=== PATIENT | male | born 1995 | race American Indian/Alaskan Native ===

== ENCOUNTER 2021-04-14 16:51 | Emergency (ER) | payer BC ==
[2021-04-14 21:57] LABS: Alanine Aminotransferase 12 units/L (7-56); Albumin 3.8 g/dL (3.9-5); BUN/Creatinine Ratio 9; Blood Urea Nitrogen 8 mg/dL (9-20); Calcium 8.8 mg/dL (8.4-10.2); Hemolysis Index 4
[2021-04-14 22:01] LABS: Hematocrit 40.1 % (35.5-45.6); Hemoglobin 13.6 gm/dl (11.8-15.2); Mean Corpuscular HGB Conc 34 % (32-34); Mean Corpuscular Volume 100 fl (84-94); Platelet Count 303 K/mm3 (140-440); Red Blood Count 4.03 M/mm3 (3.65-5.03); Red Cell Distribution Width 14.2 % (13.2-15.2)
[2021-04-14 22:51] LABS: RBC Morphology Normal; Total Cells Counted 100
== END 2021-04-14 21:53 ==
LOC: ED 16:51
DX: L08.9 Local infection of the skin and subcutaneous tissue, unspecified (principal); Z53.21 Procedure and treatment not carried out due to patient leaving prior to being seen by health care provider
CPT/HCPCS: 36415; 80053; 85007; 85025

== ENCOUNTER 2021-04-15 07:33 | Emergency (ER) | payer SELFPAY ==
[2021-04-15 13:00] VITALS: BP 123/75
--- NOTE | 2021-04-15 13:00 | Event Note ---
ED Screening Note Date of service: 04/15/21 Time: 12:59 ED Screening Note: Patient complains of white/pale stools with abdominal pain x2 to 3 weeks Also complains of decreased urination Patient is a poor historian This initial assessment/diagnostic orders/clinical plan/treatment(s) is/are subj ect to change based on patients health status, clinical progression and re- assessment by fellow clinical providers in the ED. Further treatment and workup at subsequent clinical providers discretion. Patient/guardian urged not to elope from the ED as their condition may be serious if not clinically assessed and managed. Initial orders include: Labs CT
[2021-04-15 13:43] LABS: Basophils # (Auto) 0.1 K/mm3 (0.0-0.1); Basophils % (Auto) 1.2 % (0.0-1.8); Eosinophils # (Auto) 0.5 K/mm3 (0.0-0.4); Eosinophils % (Auto) 10.1 % (0.0-4.3); Hematocrit 40.8 % (35.5-45.6); Hemoglobin 13.7 gm/dl (11.8-15.2); Lymphocytes # (Auto) 1.6 K/mm3 (1.2-5.4); Lymphocytes % (Auto) 34.8 % (13.4-35.0); Mean Corpuscular HGB Conc 34 % (32-34); Mean Corpuscular Volume 99 fl (84-94); Monocytes # (Auto) 0.3 K/mm3 (0.0-0.8); Monocytes % (Auto) 7.5 % (0.0-7.3); Platelet Count 323 K/mm3 (140-440); Red Blood Count 4.14 M/mm3 (3.65-5.03); Red Cell Distribution Width 14.2 % (13.2-15.2)
[2021-04-15 14:02] LABS: Alanine Aminotransferase 11 units/L (7-56); Albumin 3.7 g/dL (3.9-5); Blood Urea Nitrogen 8 mg/dL (9-20); Calcium 9.3 mg/dL (8.4-10.2); Hemolysis Index 4
[2021-04-15 14:04] LABS: BUN/Creatinine Ratio 11
== END 2021-04-15 22:22 ==
LOC: ED 07:33
DX: Z00.00 Encounter for general adult medical examination without abnormal findings (principal); Z53.21 Procedure and treatment not carried out due to patient leaving prior to being seen by health care provider
CPT/HCPCS: 36415; 80053; 83690; 85025

== ENCOUNTER 2021-04-16 03:26 | Inpatient (IN) | payer SELFPAY ==
[2021-04-16 05:25] LABS: Basophils % (Auto) 0.7 % (0.0-1.8); Eosinophils # (Auto) 0.3 K/mm3 (0.0-0.4); Eosinophils % (Auto) 8.5 % (0.0-4.3); Hematocrit 43.6 % (35.5-45.6); Hemoglobin 14.6 gm/dl (11.8-15.2); Lymphocytes # (Auto) 1.1 K/mm3 (1.2-5.4); Lymphocytes % (Auto) 26.3 % (13.4-35.0); Mean Corpuscular HGB Conc 34 % (32-34); Mean Corpuscular Volume 100 fl (84-94); Monocytes # (Auto) 0.4 K/mm3 (0.0-0.8); Platelet Count 308 K/mm3 (140-440); Red Blood Count 4.35 M/mm3 (3.65-5.03); Red Cell Distribution Width 14.5 % (13.2-15.2)
[2021-04-16 06:34] LABS: Alanine Aminotransferase 12 units/L (7-56); Albumin 3.8 g/dL (3.9-5); BUN/Creatinine Ratio 14; Blood Urea Nitrogen 11 mg/dL (9-20); Calcium 9.6 mg/dL (8.4-10.2); Hemolysis Index 19
[2021-04-16] MEDS ORDERED: SODIUM CHLORIDE 0.9% 500 ML 500 ML IV ONE (12:39)
--- NOTE | 2021-04-16 12:39 | Emergency Department Report ---
ED Abdominal Pain HPI - General Chief Complaint: Abdominal Pain Stated Complaint: HAD SURGERY AT [facility] CURRENTLY HAVING PROBLEMS Time Seen by Provider: 04/16/21 12:05 Source: patient Mode of arrival: Ambulatory - History of Present Illness Initial Comments: 26 year old male presents to ER today with complaints of suprapubic abdominal pain which he has been having since the beginning of February2021. Patient states he was as well as at [facility] in the beginning of January, he states that he had a suprapubic catheter placed because he had "a bad infection throughout his body". He cannot give a clear explanation as to why he had a suprapubic catheter. He states that the suprapubic catheter was removed at the beginning of February but since it had been removed he has been having pain in that area. He also states that he has been having difficulty with his bowel movements. He states that the last time he had a bowel movement was about a week ago, and he also states that he has been constantly dripping urine, it has an odor and he is having hematuria and dysuria and he also reports a decreased appetite and he states he hasn't eaten for 3 days. Patient states that the pain is worse when he walks. He reports no nausea or vomiting, fever or chills. Patient states that he is type I DM on insulin but has been out of his meds x 2 weeks. He states he has a PCP, Dr Al but he is homeless and hasn't followed with him in a while. MD Complaint: abdominal pain -: month(s) (SINCE february ) Location: suprapubic Severity scale (0 -10): 0 - Related Data Allergies Allergy/AdvReac Type Severity Reaction Status Date / Time No Known Allergies Allergy Verified 04/16/21 04:30 ED Review of Systems ROS: Stated complaint: HAD SURGERY AT [facility] CURRENTLY HAVING PROBLEMS Other details as noted in HPI Comment: All other systems reviewed and negative Constitutional: denies: chills, fever Eyes: denies: eye pain, eye discharge, vision change ENT: denies: ear pain, throat pain Respiratory: denies: cough, shortness of breath, SOB with exertion, SOB at rest, wheezing Cardiovascular: denies: chest pain, palpitations, dyspnea on exertion, edema, s yncope, paroxysmal nocturnal dyspnea Gastrointestinal: abdominal pain, constipation. denies: nausea, vomiting, diarrhea, hematemesis Genitourinary: denies: urgency, dysuria, frequency, hematuria, discharge, testicular pain, testicular mass Musculoskeletal: denies: back pain, joint swelling, arthralgia Skin: denies: rash, lesions, change in color, change in hair/nails, pruritus Neurological: denies: headache, weakness, numbness, paresthesias, confusion, abnormal gait, vertigo Psychiatric: denies: anxiety, depression, auditory hallucinations, visual hallucinations, homicidal thoughts, suicidal thoughts Hematological/Lymphatic: denies: easy bleeding, easy bruising ED Past Medical Hx - Past Medical History Previous Medical History?: Yes Hx Diabetes: Yes Hx Sickle Cell Disease: Yes - Surgical History Past Surgical History?: Yes Additional Surgical History: abdominal surgery, rectal surgery - Social History Smoking Status: Never Smoker Substance Use Type: None ED Physical Exam - General General appearance: alert, in no apparent distress - Head Head exam: Present: atraumatic, normocephalic, normal inspection - ENT ENT exam: Present: normal exam, mucous membranes moist - Neck Neck exam: Present: normal inspection, full ROM. Absent: meningismus - Respiratory Respiratory exam: Present: normal lung sounds bilaterally. Absent: respiratory distress, wheezes, rales, rhonchi - Cardiovascular Cardiovascular Exam: Present: regular rate, normal rhythm, normal heart sounds - GI/Abdominal GI/Abdominal exam: Present: soft, tenderness (suprapubic with mild guarding ), guarding. Absent: distended, rebound, rigid - Neurological Exam Neurological exam: Present: alert, oriented X3, CN II-XII intact, normal gait - Psychiatric Psychiatric exam: Present: normal affect, normal mood - Skin Skin exam: Present: intact ED Course Vital Signs 04/16/21 04/16/21 04:25 09:25 Temperature 98.7 F 98.7 F Pulse Rate 67 77 Respiratory 18 18 Rate Blood Pressure 122/76 124/82 [Left] O2 Sat by Pulse 100 99 Oximetry ED Medical Decision Making - Lab Data Result diagrams: 04/16/21 04:47 04/16/21 04:47 - Radiology Data Radiology results: report reviewed Patient: TONJA KERN MR#: [id number] : 1995 Acct:[id number] Age/Sex: 26 / M ADM Date: 04/16/21 Loc: ED Attending Dr: Ordering Physician: JAMES MCKEON Date of Service: 04/16/21 Procedure(s): CT abdomen pelvis w con Accession Number(s): [id number] cc: JAMES MCKEON CT ABDOMEN AND PELVIS WITH CONTRAST HISTORY: Lower abd pain 100 ML OMNI 300. COMPARISON: None. TECHNIQUE: CT images of the abdomen and pelvis were obtained following administration of intravenous contrast. All CT scans at this location are performed using CT dose reduction for ALARA by means of automated exposure control. CONTRAST: 100 ml of intravenous contrast administered. FINDINGS: Lungs/bones: Lung bases are clear. There is no acute osseous abnormality. Abdomen/pelvis: The liver, gallbladder, spleen, pancreas, adrenals, kidneys, and proximal GI tract appear unremarkable. Urinary bladder is unremarkable. No pelvic free fluid or acute colonic abnorm ality identified. The appendix is retrocecal with mild coastal enhancement. There is also slight pr ominence although it should be noted that the tip of the appendix itself contains air and appears u nremarkable. The above mentioned findings are seen at the base of the appendix. Several enlarged bilateral inguinal lymph nodes are present, some of which approach 1 cm in short axis. No gross retroperitoneal adenopathy or peritoneal adenopathy identified although the evaluation is limited given lack of intraperitoneal fat. IMPRESSION: 1. Findings involving the appendix is outlined above could be seen with early/mild appendix. Typically when there is air within the lumen of the appendix it has been felt in the past that this would go against any infectious process; however, more recent literature no longer supports this theory. Again, correlate with exam findings. 2. Bilateral inguinal adenopathy. Attention on follow-up recommended. Signer Name: Jewel Sahu MD Signed: 04/16/2021 3:41 PM Workstation Name: [id number] Transcribed By: BOBBY Dictated By: Jewel Sahu MD Electronically Authenticated By: Jewel Sahu MD Signed Date/Time: 04/16/21 1541 DD/ 1532 TD/TT: - Medical Decision Making 1554: CBC unremarkable. CMP also unremarkable. Pt FSBS did drop to 40 but he was give D50 and its now 70. Patient only now giving urine sample and UA pending His CT abdomen pelvis report shows -- 1. Findings involving the appendix is outlined above could be seen with early/mild appendix. Typically when there is air within the lumen of the appendix it has been felt in the past that this woul d go against any infectious process; however, more recent literature no longer supports this theory. Again, correlate with exam findings. 2. Bilateral inguinal adenopathy. Attention on follow-up recommended. Re-evaluated patient again and he again reports that he has been having the same pain since he has suprapubic catheter removed in February. He states that the pain has been constant and never went away. Repeat abdominal exam shows mainly mild suprapubic abdominal tenderness without guarding or rebound. Discussed case with Dr Alexis since Dr Khan has already left for the day. We reviewed case, lab and CT results and recommend consulting General surgeon. 1608: Called placed to Dr Henriquez 1625: Discussed case with Dr Henriquez, she recommend admitting patient for observation and repeat abdominal exam and reviewing of CT results. She recommend starting patient on IV levaquin in meantime and to remain NPO 1702: Discussed case with Dr Barraza, hospitalist, he will admit pt. Discussed all results and reason for admission with patient. He is currently resting comfortably and stable. Critical care attestation.: If time is entered above; I have spent that time in minutes in the direct care of this critically ill patient, excluding procedure time. ED Disposition Clinical Impression: Lower abdominal pain, Abnormal abdominal CT scan, Hypoglycemia Disposition: 09 ADMITTED INPATIENT Is pt being admited?: Yes Condition: Stable Referrals: PRIMARY CARE, [Primary Care Provider] - 3-5 Days
[2021-04-16] MEDS ORDERED: SODIUM CHLORIDE 0.9% 1000 ML 1,000 ML IV ONE (12:55)
[2021-04-16] MEDS ORDERED: DEXTROSE 50% IN WATER (25GM) 50 ML SYRINGE IV ONE (13:57)
--- NOTE | 2021-04-16 15:45 | Cat Scan Report ---
CT ABDOMEN AND PELVIS WITH CONTRAST HISTORY: Lower abd pain 100 ML OMNI 300. COMPARISON: None. TECHNIQUE: CT images of the abdomen and pelvis were obtained following administration of intravenous contrast. All CT scans at this location are performed using CT dose reduction for ALARA by means of automated exposure control. CONTRAST: 100 ml of intravenous contrast administered. FINDINGS: Lungs/bones: Lung bases are clear. There is no acute osseous abnormality. Abdomen/pelvis: The liver, gallbladder, spleen, pancreas, adrenals, kidneys, and proximal GI tract a ppear unremarkable. Urinary bladder is unremarkable. No pelvic free fluid or acute colonic abnormality identified. The ap pendix is retrocecal with mild coastal enhancement. There is also slight prominence although it shoul d be noted that the tip of the appendix itself contains air and appears unremarkable. The above menti oned findings are seen at the base of the appendix. Several enlarged bilateral inguinal lymph nodes are present, some of which approach 1 cm in short axi s. No gross retroperitoneal adenopathy or peritoneal adenopathy identified although the evaluation is limited given lack of intraperitoneal fat. IMPRESSION: 1. Findings involving the appendix is outlined above could be seen with early/mild appendix. Typicall y when there is air within the lumen of the appendix it has been felt in the past that this would go against any infectious process; however, more recent literature no longer supports this theory. Agai n, correlate with exam findings. 2. Bilateral inguinal adenopathy. Attention on follow-up recommended. Signer Name: Jweel Sahu MD Signed: 04/16/2021 3:41 PM Workstation Name: [id number]
[2021-04-16 17:05] LABS: Bacteria,Urine 2+ /HPF (Negative); Bilirubin,Urine NEG (Negative); Blood,Urine SM (Negative); Color,Urine Amber (Yellow); Mucus,Urine 3+ /HPF
[2021-04-16 17:06] LABS: WBC,Urine > 182.0 /HPF (0.0-6.0)
--- NOTE | 2021-04-16 18:47 | Consultation ---
History of Present Illness Consult date: 04/16/21 Reason for consult: abdominal pain - History of present illness History of present illness: General surgery was counseled for 26-year-old male who presented to the emergency room with abdominal pain. Patient says that he had a suprapubic catheter placed at [facility] in January of this year. He is unclear as to why the tube was placed except for the fact that he says that he had an infection. The tube was removed in February of this year. Since then he complains of constant suprapubic abdominal pain. He also complains of inability to ejaculate, and fully empty his bladder. He says he constantly has dribbling of urine as well as a discharge from his penis. Patient denies any right lower quadrant pain, nausea or vomiting. Patient says that he is very hungry and would like to eat. Patient had a CT scan of the abdomen and pelvis that showed some enhancement at the base of the appendix suggestive of possible mild early appendicitis. Of note patient says that he has not followed up at [facility], he is also not taken his insulin last 2 weeks due to being homeless. Past History Past Medical History: other (Type 1 diabetes, sickle cell anemia) Past Surgical History: Other (Suprapubic catheter placement removal, rectal surgery (patient unsure of procedure done on his rectum however he says was performed the same time of his suprapubic catheter.)) Social history: no significant social history Family history: no significant family history Medications and Allergies Allergies Allergy/AdvReac Type Severity Reaction Status Date / Time No Known Allergies Allergy Verified 04/16/21 04:30 Review of Systems All systems: negative - Gastrointestinal abdominal pain, constipation, other (Passes pale pasty stool), no nausea, no vomiting - Genitourinary dysuria, hematuria, discharge, urinary frequency, incontinence, urinary retention Exam Vital Signs Temp Pulse Resp BP Pulse Ox 98.7 F 67 18 122/76 100 04/16/21 04:25 04/16/21 04:25 04/16/21 04:25 04/16/21 04:25 04/16/21 04:25 - General physical appearance Positive: well developed, no distress, no pain - Respiratory Positive: normal expansion, normal respiratory effort - Extremities Extremities: no ischemia - Abdomen Abdomen: Present: soft, other (Mildly tender to deep palpation suprapubic area. No pain in the right upper quadrant any worse in his abdomen to palpation). Absent: distended, rebound, guarding, rigid - Neurologic Neurologic: alert and oriented to time, place and person - Psychiatric Psychiatric: appropriate mood/affect, cooperative Results - Labs 04/16/21 04:47 04/16/21 04:47 Abnormal lab results 04/16/21 04/16/21 04/16/21 Range/Units 04:24 04:47 04:47 WBC 4.1 L (4.5-11.0) K/mm3 MCV 100 H (84-94) fl MCH 34 H (28-32) pg [place] % (Auto) 11.0 H (0.0-7.3) % Eos % (Auto) 8.5 H (0.0-4.3) % Lymph # (Auto) 1.1 L (1.2-5.4) K/mm3 Sodium 135 L (137-145) mmol/L POC Glucose 46 L (70-105) mg/dL Total Protein 9.4 H (6.3-8.2) g/dL Albumin 3.8 L (3.9-5) g/dL Ur Specific [place] (1.003-1.030) Urine WBC (Auto) (0.0-6.0) /HPF 04/16/21 04/16/21 04/16/21 Range/Units 05:59 10:14 13:56 WBC (4.5-11.0) K/mm3 MCV (84-94) fl MCH (28-32) pg [place] % (Auto) (0.0-7.3) % Eos % (Auto) (0.0-4.3) % Lymph # (Auto) (1.2-5.4) K/mm3 Sodium (137-145) mmol/L POC Glucose 111 H 122 H 43 L (70-105) mg/dL Total Protein (6.3-8.2) g/dL Albumin (3.9-5) g/dL Ur Specific [place] (1.003-1.030) Urine WBC (Auto) (0.0-6.0) /HPF 04/16/21 04/16/21 Range/Units 16:52 Unknown WBC (4.5-11.0) K/mm3 MCV (84-94) fl MCH (28-32) pg [place] % (Auto) (0.0-7.3) % Eos % (Auto) (0.0-4.3) % Lymph # (Auto) (1.2-5.4) K/mm3 Sodium (137-145) mmol/L POC Glucose 67 L (70-105) mg/dL Total Protein (6.3-8.2) g/dL Albumin (3.9-5) g/dL Ur Specific [place] 1.050 H (1.003-1.030) Urine WBC (Auto) > 182.0 H (0.0-6.0) /HPF Diabetes panel 04/16/21 Range/Units 04:47 Sodium 135 L (137-145) mmol/L Potassium 3.9 (3.6-5.0) mmol/L Chloride 98.7 (98-107) mmol/L Carbon Dioxide 25 (22-30) mmol/L BUN 11 (9-20) mg/dL Creatinine 0.8 (0.8-1.3) mg/dL Glucose 89 (75-100) mg/dL Calcium 9.6 (8.4-10.2) mg/dL AST 28 (5-40) units/L ALT 12 (7-56) units/L Alkaline Phosphatase 106 (35-129) units/L Total Protein 9.4 H (6.3-8.2) g/dL Albumin 3.8 L (3.9-5) g/dL Calcium panel 04/16/21 Range/Units 04:47 Calcium 9.6 (8.4-10.2) mg/dL Albumin 3.8 L (3.9-5) g/dL Pituitary panel 04/16/21 Range/Units 04:47 Sodium 135 L (137-145) mmol/L Potassium 3.9 (3.6-5.0) mmol/L Chloride 98.7 (98-107) mmol/L Carbon Dioxide 25 (22-30) mmol/L BUN 11 (9-20) mg/dL Creatinine 0.8 (0.8-1.3) mg/dL Glucose 89 (75-100) mg/dL Calcium 9.6 (8.4-10.2) mg/dL Adrenal panel 04/16/21 Range/Units 04:47 Sodium 135 L (137-145) mmol/L Potassium 3.9 (3.6-5.0) mmol/L Chloride 98.7 (98-107) mmol/L Carbon Dioxide 25 (22-30) mmol/L BUN 11 (9-20) mg/dL Creatinine 0.8 (0.8-1.3) mg/dL Glucose 89 (75-100) mg/dL Calcium 9.6 (8.4-10.2) mg/dL Total Bilirubin 0.60 (0.1-1.2) mg/dL AST 28 (5-40) units/L ALT 12 (7-56) units/L Alkaline Phosphatase 106 (35-129) units/L Total Protein 9.4 H (6.3-8.2) g/dL Albumin 3.8 L (3.9-5) g/dL - Imaging CT scan - abdomen: report reviewed, image reviewed CT scan - pelvis: report reviewed, image reviewed Assessment and Plan 26-year-old male with suprapubic pain and recent history of suprapubic catheterization and chronic pain and urologic symptoms since then. Patient is afebrile and stable with CAT scan suggesting a possible early appendicitis. At this current time I have low suspicion for appendicitis given his history, no leukocytosis or left shift, no loss of appetite. will reevaluate tomorrow for change in symptoms. If manifest clinical symptoms of appendicitis will discussed with patient possible appendectomy. Recommend consulting urology.
[2021-04-16] MEDS ORDERED: ACETAMINOPHEN 325 MG TAB PO PRN (21:20)
[2021-04-16] MEDS ORDERED: ONDANSETRON 4 MG/2 ML INJ IV PRN (21:20)
[2021-04-16] MEDS ORDERED: METOCLOPRAMIDE 10 MG/2 ML INJ IV PRN (21:20)
[2021-04-16] MEDS ORDERED: MORPHINE 2 MG/1 ML INJ IV PRN (21:20)
[2021-04-16] MEDS ORDERED: HYDROmorphone 1 MG/1 ML INJ IV PRN (21:20)
--- NOTE | 2021-04-16 21:26 | History and Physical Report ---
History of Present Illness Date of examination: 04/16/21 Date of admission: 04/16/21 16:57 Chief complaint: Right lower quadrant pain for 1 week History of present illness: 26-year-old male with history of type 1 diabetes on low-dose insulin comes in for suprapubic abdominal pain since the beginning of February 2021. Patient had a suprapubic catheter placed at [facility] but patient is not clear about the reason for reporting suprapubic catheter. Patient has also been having right lower quadrant pain for last 1 week. Patient also has difficulty with bowel movement for 1 week. Patient states he is dripping urine. Area suprapubic catheter removed and Oniel is healing. No discharge. Patient is out of his insulin for last 2 weeks. No fever or chills. Pain right lower quadrant is intermittent in nature. About 6 on a scale of 1- 10. No nausea or vomiting. No fever. - Past Medical History --Previous Medical History?: Yes --Insulin-dependent diabetes: Yes --Sickle Cell Disease: Yes - Surgical History Past Surgical History?: Yes Additional Surgical History: abdominal surgery, rectal surgery - Social History Smoking Status: Never Smoker Substance Use Type: None Family history Htn Review of Systems ROS: Stated complaint: HAD SURGERY AT [facility] CURRENTLY HAVING PROBLEMS Other details as noted in HPI Comment: All other systems reviewed and negative Constitutional: denies: chills, fever Eyes: denies: eye pain, eye discharge, vision change ENT: denies: ear pain, throat pain Respiratory: denies: cough, shortness of breath, SOB with exertion, SOB at rest, wheezing Cardiovascular: denies: chest pain, palpitations, dyspnea on exertion, edema, syncope, paroxysmal nocturnal dyspnea Gastrointestinal: abdominal pain, constipation. denies: nausea, vomiting, diarrhea, hematemesis Genitourinary: denies: urgency, dysuria, frequency, hematuria, discharge, testicular pain, testicular mass Musculoskeletal: denies: back pain, joint swelling, arthralgia Skin: denies: rash, lesions, change in color, change in hair/nails, pruritus Neurological: denies: headache, weakness, numbness, paresthesias, confusion, abnormal gait, vertigo Psychiatric: denies: anxiety, depression, auditory hallucinations, visual hallucinations, homicidal thoughts, suicidal thoughts Hematological/Lymphatic: denies: easy bleeding, easy bruising Past History Past Medical History: other (Type 1 diabetes, sickle cell anemia) Past Surgical History: Other (Suprapubic catheter placement removal, rectal fidencio scot (patient unsure of procedure done on his rectum however he says was performed the same time of his suprapubic catheter.)) Social history: no significant social history Family history: no significant family history Medications and Allergies Allergies Allergy/AdvReac Type Severity Reaction Status Date / Time No Known Allergies Allergy Verified 04/16/21 04:30 Exam - Constitutional Vitals: Temp Pulse Resp BP Pulse Ox 98.7 F 77 18 124/82 99 04/16/21 09:25 04/16/21 09:25 04/16/21 09:25 04/16/21 09:25 04/16/21 09:25 General appearance: Present: no acute distress, well-nourished - EENT Eyes: Present: PERRL ENT: hearing intact, clear oral mucosa - Neck Neck: Present: supple, normal ROM - Respiratory Respiratory effort: normal Respiratory: bilateral: CTA - Cardiovascular Heart rate: 78 Rhythm: regular Heart Sounds: Present: S1 & S2. Absent: rub, click - Extremities Extremities: no ischemia, pulses intact, pulses symmetrical, No edema Peripheral Pulses: within normal limits - Abdominal General gastrointestinal: Present: soft, non-tender, non-distended, normal bowel sounds, other (Suprapubic puncture hole is present which is healing) Localized gastrointestinal: tender: RLQ, guarding: RLQ Male genitourinary: Present: normal - Integumentary Integumentary: Present: clear, warm, dry - Musculoskeletal Musculoskeletal: gait normal, strength equal bilaterally - Psychiatric Psychiatric: appropriate mood/affect, intact judgment & insight - Neurologic Neurologic: CNII-XII intact, moves all extremities Results - Labs CBC & Chem 7: 04/16/21 04:47 04/16/21 04:47 Labs: Laboratory Last Values WBC 4.1 K/mm3 (4.5-11.0) L 04/16/21 04:47 RBC 4.35 M/mm3 (3.65-5.03) 04/16/21 04:47 Hgb 14.6 gm/dl (11.8-15.2) 04/16/21 04:47 Hct 43.6 % (35.5-45.6) 04/16/21 04:47 MCV 100 fl (84-94) H 04/16/21 04:47 MCH 34 pg (28-32) H 04/16/21 04:47 MCHC 34 % (32-34) 04/16/21 04:47 RDW 14.5 % (13.2-15.2) 04/16/21 04:47 Plt Count 308 K/mm3 (140-440) 04/16/21 04:47 Lymph % (Auto) 26.3 % (13.4-35.0) 04/16/21 04:47 Bradley % (Auto) 11.0 % (0.0-7.3) H 04/16/21 04:47 Eos % (Auto) 8.5 % (0.0-4.3) H 04/16/21 04:47 Baso % (Auto) 0.7 % (0.0-1.8) 04/16/21 04:47 Lymph # (Auto) 1.1 K/mm3 (1.2-5.4) L 04/16/21 04:47 Bradley # (Auto) 0.4 K/mm3 (0.0-0.8) 04/16/21 04:47 Eos # (Auto) 0.3 K/mm3 (0.0-0.4) 04/16/21 04:47 Baso # (Auto) 0.0 K/mm3 (0.0-0.1) 04/16/21 04:47 Seg Neutrophils % 53.5 % (40.0-70.0) 04/16/21 04:47 Seg Neutrophils # 2.2 K/mm3 (1.8-7.7) 04/16/21 04:47 Sodium 135 mmol/L (137-145) L 04/16/21 04:47 Potassium 3.9 mmol/L (3.6-5.0) 04/16/21 04:47 Chloride 98.7 mmol/L (98-107) 04/16/21 04:47 Carbon Dioxide 25 mmol/L (22-30) 04/16/21 04:47 Anion Gap 15 mmol/L 04/16/21 04:47 BUN 11 mg/dL (9-20) 04/16/21 04:47 Creatinine 0.8 mg/dL (0.8-1.3) 04/16/21 04:47 Estimated GFR > 60 ml/min 04/16/21 04:47 BUN/Creatinine Ratio 14 % 04/16/21 04:47 Glucose 89 mg/dL (75-100) 04/16/21 04:47 POC Glucose 67 mg/dL (70-105) L 04/16/21 16:52 Calcium 9.6 mg/dL (8.4-10.2) 04/16/21 04:47 Total Bilirubin 0.60 mg/dL (0.1-1.2) 04/16/21 04:47 AST 28 units/L (5-40) 04/16/21 04:47 ALT 12 units/L (7-56) 04/16/21 04:47 Alkaline Phosphatase 106 units/L (35-129) 04/16/21 04:47 Total Protein 9.4 g/dL (6.3-8.2) H 04/16/21 04:47 Albumin 3.8 g/dL (3.9-5) L 04/16/21 04:47 Albumin/Globulin Ratio 0.7 % 04/16/21 04:47 Lipase 13 units/L (13-60) 04/16/21 04:47 Urine Color Rosa (Yellow) 04/16/21 Unknown Urine Turbidity Turbid (Clear) 04/16/21 Unknown Urine pH 7.0 (5.0-7.0) 04/16/21 Unknown Ur Specific [place] 1.050 (1.003-1.030) H 04/16/21 Unknown Urine Protein 100 mg/dl mg/dL (Negative) 04/16/21 Unknown Urine Glucose (UA) 50 mg/dL (Negative) 04/16/21 Unknown Urine Ketones Tr mg/dL (Negative) 04/16/21 Unknown Urine Blood Sm (Negative) 04/16/21 Unknown Urine Nitrite Pos (Negative) 04/16/21 Unknown Urine Bilirubin Neg (Negative) 04/16/21 Unknown Urine Urobilinogen 4.0 mg/dL (<2.0) 04/16/21 Unknown Ur Leukocyte Esterase Lg (Negative) 04/16/21 Unknown Urine WBC (Auto) > 182.0 /HPF (0.0-6.0) H 04/16/21 Unknown Urine RBC (Auto) 30.0 /HPF (0.0-6.0) 04/16/21 Unknown U Epithel Cells (Auto) 2.0 /HPF (0-13.0) 04/16/21 Unknown Urine Bacteria (Auto) 2+ /HPF (Negative) 04/16/21 Unknown Urine Mucus 3+ /HPF 04/16/21 Unknown - Imaging and Cardiology CT scan - abdomen: report reviewed Imaging and Cardiology: Abdomen CT Findings MRI findings are outlined above could be seen with early/mild appendix. Typical evaluated in the lumen of appendectomy has been felt in the past with different variance and infectious process. However most recently treated no longer support this. Again correlated exam findings. Bilateral inguinal adenopathy. Attention to follow-up recommended. Assessment and Plan Advance Directives: Yes (Full code) Plan of care discussed with patient/family: Yes - Patient Problems (1) Acute appendicitis Current Visit: Yes Status: Acute Qualifiers: Acute appendicitis type: unspecified acute appendicitis type Qualified Code(s): K35.80 - Unspecified acute appendicitis Plan to address problem: Possible acute appendicitis Will defer to surgery regarding final impression Treat with IV antibiotics and IV analgesics. (2) Type 1 diabetes Current Visit: Yes Status: Chronic Qualifiers: Diabetes mellitus complication status: without complication Qualified Code(s): E10.9 - Type 1 diabetes mellitus without complications Plan to address problem: Patient has type 1 diabetes Patient has not been taking insulin for the last 3 weeks Patient is on about 3 units before each meal Check hemoglobin A1c (3) Urinary tract infection Current Visit: Yes Status: Acute Plan to address problem: IV antibiotics for now pending cultures (4) Hyponatremia Current Visit: Yes Status: Acute Plan to address problem: IV fluids for now (5) DVT prophylaxis Current Visit: Yes Status: Acute Plan to address problem: On heparin GI prophylaxis
[2021-04-16] MEDS ORDERED: SODIUM CHLORIDE 0.9% 1000 ML 1,000 ML IV SCH (21:30)
[2021-04-16] MEDS ORDERED: VANCOMYCIN 1,250 MG in SODIUM CHLORIDE 0.9% 250ML 250 ML IV ONE (22:00)
[2021-04-16] MEDS ORDERED: VANCOMYCIN PHARMACY TO DOSE IV SCH (22:00)
[2021-04-16] MEDS: FAMOTIDINE 20 MG/2 ML INJ IV SCH (23:38)
[2021-04-16] MEDS: HEPARIN 5,000 UNIT/1 ML VIAL SUB-Q SCH ×2 (23:39→23:44)
[2021-04-17] MEDS: INSULIN LISPRO 100 UNIT/ML SUB-Q SCH ×4 (04:32→17:35)
[2021-04-17] MEDS ORDERED: DEXTROSE 50% IN WATER (25GM) 50 ML SYRINGE IV PRN (05:46)
[2021-04-17] MEDS: VANCOMYCIN/NS 1 GM/250 ML 1 GM/250 ML BAG IV SCH ×2 (08:22→17:24)
--- NOTE | 2021-04-17 12:31 | Progress Note ---
Assessment and Plan Assessment and plan: UTI Levaquin iv (2) Type 1 diabetes Current Visit: Yes Status: Chronic Qualifiers: Diabetes mellitus complication status: without complication Qualified Code(s): E10.9 - Type 1 diabetes mellitus without complications Plan to address problem: Patient has type 1 diabetes Patient has not been taking insulin for the last 3 weeks Patient is on about 3 units before each meal Check hemoglobin A1c (3) Urinary tract infection Current Visit: Yes Status: Acute Plan to address problem: IV antibiotics for now pending cultures (4) Hyponatremia Current Visit: Yes Status: Acute Plan to address problem: IV fluids for now (5) DVT prophylaxis Current Visit: Yes Status: Acute Plan to address problem: On heparin GI prophylaxis Hypotension iv fluids 04/17/21 Patient presented with lower abd pain. Ct report possible appendicitis. He was evaluated by Surgeon. She does not think he has acute appendicitis . She has signed off. Patient has UTI. Started on Levaquin. Urine cultures pending. He had suprapubic catheter placed at [facility], removed 1 month ago. He was supposed to follow with Urology but did not go. Hypotension with BP 93/52 this morning therefore needs iv fluid, and not stable for discharge History Interval history: Lower abd pain Hospitalist Physical - Physical exam Narrative exam: Gen:Not in acute distress, lying in bed, HEENT:Normocephalic, atraumatic Neck:supple, no JVD Lungs: clear to auscultation, no wheeze Heart:S1 and S2 reg, no murmurs, rubs or gallop Abd:Soft, non tender, non distended, normal bowel sounds, small healed scar at suprapubic region presumemably where suprapubic catheter was . Ext:No edema. no clubbing, no cyanosis Neuro:Awake, alert, oriented X 3, moves all ext, No focal neurological signs - Constitutional Vitals: Temp Pulse Resp BP Pulse Ox 97.9 F 68 16 110/64 99 04/17/21 11:11 04/17/21 11:11 04/17/21 11:11 04/17/21 11:11 04/17/21 11:11 General appearance: Present: no acute distress, well-nourished Results - Labs CBC & Chem 7: 04/16/21 04:47 04/16/21 04:47 Labs: Laboratory Last Values WBC 4.1 K/mm3 (4.5-11.0) L 04/16/21 04:47 RBC 4.35 M/mm3 (3.65-5.03) 04/16/21 04:47 Hgb 14.6 gm/dl (11.8-15.2) 04/16/21 04:47 Hct 43.6 % (35.5-45.6) 04/16/21 04:47 MCV 100 fl (84-94) H 04/16/21 04:47 MCH 34 pg (28-32) H 04/16/21 04:47 MCHC 34 % (32-34) 04/16/21 04:47 RDW 14.5 % (13.2-15.2) 04/16/21 04:47 Plt Count 308 K/mm3 (140-440) 04/16/21 04:47 Lymph % (Auto) 26.3 % (13.4-35.0) 04/16/21 04:47 Sac % (Auto) 11.0 % (0.0-7.3) H 04/16/21 04:47 Eos % (Auto) 8.5 % (0.0-4.3) H 04/16/21 04:47 Baso % (Auto) 0.7 % (0.0-1.8) 04/16/21 04:47 Lymph # (Auto) 1.1 K/mm3 (1.2-5.4) L 04/16/21 04:47 Sac # (Auto) 0.4 K/mm3 (0.0-0.8) 04/16/21 04:47 Eos # (Auto) 0.3 K/mm3 (0.0-0.4) 04/16/21 04:47 Baso # (Auto) 0.0 K/mm3 (0.0-0.1) 04/16/21 04:47 Seg Neutrophils % 53.5 % (40.0-70.0) 04/16/21 04:47 Seg Neutrophils # 2.2 K/mm3 (1.8-7.7) 04/16/21 04:47 Sodium 135 mmol/L (137-145) L 04/16/21 04:47 Potassium 3.9 mmol/L (3.6-5.0) 04/16/21 04:47 Chloride 98.7 mmol/L (98-107) 04/16/21 04:47 Carbon Dioxide 25 mmol/L (22-30) 04/16/21 04:47 Anion Gap 15 mmol/L 04/16/21 04:47 BUN 11 mg/dL (9-20) 04/16/21 04:47 Creatinine 0.8 mg/dL (0.8-1.3) 04/16/21 04:47 Estimated GFR > 60 ml/min 04/16/21 04:47 BUN/Creatinine Ratio 14 % 04/16/21 04:47 Glucose 89 mg/dL (75-100) 04/16/21 04:47 POC Glucose 72 mg/dL (70-105) 04/17/21 11:08 Calcium 9.6 mg/dL (8.4-10.2) 04/16/21 04:47 Total Bilirubin 0.60 mg/dL (0.1-1.2) 04/16/21 04:47 AST 28 units/L (5-40) 04/16/21 04:47 ALT 12 units/L (7-56) 04/16/21 04:47 Alkaline Phosphatase 106 units/L (35-129) 04/16/21 04:47 Total Protein 9.4 g/dL (6.3-8.2) H 04/16/21 04:47 Albumin 3.8 g/dL (3.9-5) L 04/16/21 04:47 Albumin/Globulin Ratio 0.7 % 04/16/21 04:47 Lipase 13 units/L (13-60) 04/16/21 04:47 Urine Color Rosa (Yellow) 04/16/21 Unknown Urine Turbidity Turbid (Clear) 04/16/21 Unknown Urine pH 7.0 (5.0-7.0) 04/16/21 Unknown Ur Specific [place] 1.050 (1.003-1.030) H 04/16/21 Unknown Urine Protein 100 mg/dl mg/dL (Negative) 04/16/21 Unknown Urine Glucose (UA) 50 mg/dL (Negative) 04/16/21 Unknown Urine Ketones Tr mg/dL (Negative) 04/16/21 Unknown Urine Blood Sm (Negative) 04/16/21 Unknown Urine Nitrite Pos (Negative) 04/16/21 Unknown Urine Bilirubin Neg (Negative) 04/16/21 Unknown Urine Urobilinogen 4.0 mg/dL (<2.0) 04/16/21 Unknown Ur Leukocyte Esterase Lg (Negative) 04/16/21 Unknown Urine WBC (Auto) > 182.0 /HPF (0.0-6.0) H 04/16/21 Unknown Urine RBC (Auto) 30.0 /HPF (0.0-6.0) 04/16/21 Unknown U Epithel Cells (Auto) 2.0 /HPF (0-13.0) 04/16/21 Unknown Urine Bacteria (Auto) 2+ /HPF (Negative) 04/16/21 Unknown Urine Mucus 3+ /HPF 04/16/21 Unknown Bhatia/IV: Voiding Method Toilet Active Medications - Current Medications Current Medications: Generic Name Dose Route Start Last Admin Trade Name Freq PRN Reason Stop Dose Admin Acetaminophen 650 mg 04/16/21 21:20 Acetaminophen 325 Mg Tab PO Q4H PRN Pain MILD(1-3)/Fever >100.5/BALLESTEROS Dextrose 0 ml 04/17/21 05:46 04/17/21 05:53 Dextrose 50% In Water (25gm) 50 Ml Syringe IV 10 ml Q30MIN PRN Administration Hypoglycemia Protocol Famotidine 20 mg 04/16/21 22:00 04/16/21 23:38 Famotidine 20 Mg/2 Ml Inj IV 20 mg BID ROMAN Administration Heparin Sodium (Porcine) 5,000 unit 04/16/21 22:00 04/16/21 23:44 Heparin 5,000 Unit/1 Ml Vial SUB-Q Not Given Q12HR ROMAN Hydromorphone HCl 0.5 mg 04/16/21 21:20 Hydromorphone 1 Mg/1 Ml Inj IV Q3H PRN Pain , Severe (7-10) Levofloxacin/Dextrose 750 mg in 150 mls @ 100 mls/hr 04/17/21 10:00 Levaquin 750mg/150ml IV Q24HR [facility] Protocol Vancomycin HCl 1 gm in 250 mls @ 250 mls/hr 04/17/21 08:00 04/17/21 08:22 Vancomycin/Ns 1 Gm/250 Ml IV 250 mls/hr Q8H ROMAN Administration Dextrose/Sodium Chloride 1,000 mls @ 75 mls/hr 04/17/21 12:00 D5ns IV DIRECT [facility] Insulin Human Lispro 0 unit 04/17/21 00:00 04/17/21 05:58 Insulin Lispro 100 Unit/Ml SUB-Q Not Given Q6HR [facility] Protocol Metoclopramide HCl 10 mg 04/16/21 21:20 Metoclopramide 10 Mg/2 Ml Inj IV Q6H PRN Nausea And Vomiting Morphine Sulfate 2 mg 04/16/21 21:20 Morphine 2 Mg/1 Ml Inj IV Q4H PRN Pain, Moderate (4-6) Ondansetron HCl 4 mg 04/16/21 21:20 Ondansetron 4 Mg/2 Ml Inj IV Q8H PRN Nausea And Vomiting Sodium Chloride 10 ml 04/16/21 22:00 04/16/21 23:46 Sodium Chloride 0.9% 10 Ml Flush Syringe IV 10 ml BID [facility] Administration Sodium Chloride 10 ml 04/16/21 21:20 Sodium Chloride 0.9% 10 Ml Flush Syringe IV PRN PRN LINE FLUSH
--- NOTE | 2021-04-17 13:00 | Progress Note ---
Assessment and Plan 26-year-old male with abdominal pain, with CT scan findings suggestive of possible early appendicitis. Patient has recent suprapubic catheterization and removal in the last 2 months of which he has had chronic suprapubic pain which is a bottom into the hospital and persist. Patient denies ever having right lower quadrant pain, nausea vomiting. Patient remains afebrile and stable. Do not believe this patient has acute appendicitis. No surgical intervention is warranted at this time. Patient given started on a diet. We will sign off. Subjective Date of service: 04/17/21 Narrative: No acute events overnight. Patient denies any abdominal pain at this time. Eugenio castillo says that he is hungry and wants to eat. Objective Vital Signs - 12hr 04/17/21 04/17/21 04/17/21 03:36 04:00 08:25 Temperature 97.8 F 98.6 F Pulse Rate 57 L 58 L 69 Respiratory 19 16 Rate Blood Pressure 93/52 Blood Pressure 100/52 [Left] O2 Sat by Pulse 99 96 Oximetry 04/17/21 11:11 Temperature 97.9 F Pulse Rate 68 Respiratory 16 Rate Blood Pressure 110/64 Blood Pressure [Left] O2 Sat by Pulse 99 Oximetry - General physical appearance well developed, no distress, no pain - Respiratory normal expansion, clear to auscultation - Abdomen soft, not tender, not distended, not guarding, not rigid - Labs 04/16/21 04:47 04/16/21 04:47
[2021-04-17] MEDS: FAMOTIDINE 20 MG/2 ML INJ IV SCH ×2 (14:12→21:42)
[2021-04-17] MEDS: D5W/0.9% NACL 1,000 ML IV SCH (14:13)
[2021-04-17] MEDS: HEPARIN 5,000 UNIT/1 ML VIAL SUB-Q SCH ×2 (14:16→21:42)
[2021-04-18] MEDS: D5W/0.9% NACL 1,000 ML IV SCH
[2021-04-18] MEDS: INSULIN LISPRO 100 UNIT/ML SUB-Q SCH ×3 (00:04→13:21)
[2021-04-18] MEDS: FAMOTIDINE 20 MG/2 ML INJ IV SCH ×2 (09:08→09:20)
[2021-04-18] MEDS: VANCOMYCIN/NS 1 GM/250 ML 1 GM/250 ML BAG IV SCH ×2 (09:08)
[2021-04-18] MEDS: HEPARIN 5,000 UNIT/1 ML VIAL SUB-Q SCH (10:22)
[2021-04-18 11:19] LABS: Hematocrit 40.2 % (35.5-45.6); Hemoglobin 13.5 gm/dl (11.8-15.2); Mean Corpuscular HGB Conc 34 % (32-34); Mean Corpuscular Volume 98 fl (84-94); Platelet Count 293 K/mm3 (140-440); Red Blood Count 4.09 M/mm3 (3.65-5.03); Red Cell Distribution Width 13.7 % (13.2-15.2)
[2021-04-18 11:50] LABS: Alanine Aminotransferase 9 units/L (7-56); BUN/Creatinine Ratio 9; Blood Urea Nitrogen 6 mg/dL (9-20); Calcium 8.7 mg/dL (8.4-10.2); Hemolysis Index 9
[2021-04-18 12:10] VITALS: BP 108/56
--- NOTE | 2021-04-18 13:07 | Discharge Summary ---
Providers - Providers Date of Admission: 04/17/21 14:01 Date of discharge: 04/18/21 Attending physician: BRAD SAAB 04/16/21 21:20 Consult to Physician [CONS] Routine Comment: Consulting Provider: JAMES TERRY Physician Instructions: Reason For Exam: Poss Appendicitis Primary care physician: BRICK OFF BEARER Hospitalization Condition: Stable Disposition: 01 HOME / SELF CARE / HOMELESS Final Discharge Diagnosis (Prints w/discharge instructions): 1.UTI. 2.Hypotension. 3.Diabetes - Discharge Diagnoses (1) Hypotension Status: Acute (2) Hyponatremia Status: Acute (3) Urinary tract infection Status: Acute (4) Diabetes mellitus Status: Acute Core Measure Documentation - Palliative Care Palliative Care/ Comfort Measures: Not Applicable - Core Measures Any of the following diagnoses?: none Exam - Constitutional Vitals: Temp Pulse Resp BP Pulse Ox 98.2 F 68 16 108/56 100 04/18/21 12:09 04/18/21 12:09 04/18/21 12:09 04/18/21 12:09 04/18/21 12:09 Plan Activity: advance as tolerated Diet: diabetic Plan of Treatment: 1.Follow up with PCP in 1 week. 2.Follow up with your Urology from [facility] Follow up with: PRIMARY CARE, [Primary Care Provider] - 3-5 Days Prescriptions: levoFLOXacin [Levaquin] 750 mg PO QDAY 5 Days #5 tablet traMADoL [Ultram 50 MG tab] 50 mg PO Q6HR PRN #10 tablet PRN Reason: Pain
[2021-04-18 13:34] LABS: Monocytes % (Manual) 21 % (0.0-7.3)
[2021-04-18 13:35] LABS: Eosinophils % (Manual) 17 % (0.0-4.3); RBC Morphology Normal
== END 2021-04-18 17:14 | disposition home or self-care (01) | DRG 690 ==
LOC: ED 03:26 → 4A 16:57 → OBSVTOIN 04-17 14:01
PROVIDERS: ADMIT Internal Medicine; ATTEND Internal Medicine
DX: N39.0 Urinary tract infection, site not specified (principal); E87.1 Hypo-osmolality and hyponatremia; I95.9 Hypotension, unspecified; E10.649 Type 1 diabetes mellitus with hypoglycemia without coma; Z82.49 Family history of ischemic heart disease and other diseases of the circulatory system
CPT/HCPCS: 36415; 74177; 80053; 81001; 82962; 83036; 83690; 85007; 85025; 87086; G0378; J1644; J1956; J3370; J7030; J7040; J7042; J7050; Q9967